=== PATIENT | male | born 1960 | race Caucasian/White ===

== ENCOUNTER → 2016-08-22 | Day surgery (SDC) | payer BC ==
[~2016-08-22] MED LIST: ANTIINFLAMMATORY; CALCIUM + D 6001 TA1 PO; COUMADIN PO; FISH OIL 1,0001 CAP PO; FISH OIL 1,0001 EAC1 PO; IRON TABLETS1 TAB PO; KLONOPIN1 MG PO; LISINOPRIL10 MG PO; LORTAB 5/500 TA1 TA1 PO; MOBIC15 MG PO; MULTI-DAY1 TAB PO; PERCOCET 7.5/321 TAB PO; PERCOCET10 PO; PREDNISONE PO; SLEEPING PILL; ZOVIRAX800 MG PO
--- NOTE | ~2016-08-22 | OR ---
Unit #: [id number] #: [id number] Patient: LINDY NUÑEZ [id number] [address] [address] [id number] MR#: [id number] NAME: LINDY NUÑEZ. ROOM: Date of Procedure: 08/22/2016 Admission Date: 08/22/2016 Surgeon: Bret Denny M.D. : 1960 Attending Physician: Bret Denny M.D. Primary Care Physician: Festus Medley M.D. OPERATIVE REPORT PREOPERATIVE DIAGNOSES Radiculopathy, degenerative disk disease, spinal stenosis, spondylolisthesis and back pain. POSTOPERATIVE DIAGNOSES Radiculopathy, degenerative disk disease, spinal stenosis, spondylolisthesis and back pain. PROCEDURE PERFORMED Lumbar epidural steroid injection with intravenous sedation under fluoroscopic guidance for needle localization. HISTORY The patient is a 56-year-old male with significant left lower extremity pain much greater than back pain associated with spinal disease. He is a poor surgical candidate due to the extensive amount of abnormalities. Medications helped somewhat. He has failed with rehab. Plan is for trial of epidural steroids to address this radicular component of his pain. DESCRIPTION OF PROCEDURE The patient was placed in a seated position. Standard monitors were applied. Then, 2 mg of Versed were given for sedation and anxiolysis, which were adequate. Vital signs remained stable. Sterile prep and drape then of the lumbar area was performed. The skin then at the L4-L5 level was localized with 1% lidocaine. An 18-gauge Hustead needle was then advanced via loss of resistance technique with fluoroscopic guidance in toward the epidural space. After confirming proper positioning with fluoroscopy and radiographic contrast, 80 mg of Depo-Medrol and 4 mL of 0.125% bupivacaine were deposited. The patient tolerated the procedure otherwise well and was discharged to recovery room in stable condition. Dictated by... Sp Ayala/zane TD: 08/22/2016 10:08 JOB #: [id number] Unit #: [id number] #: [id number] Patient: LINDY NUÑEZ OPERATIVE REPORT Page 1 of 1 X Bret Denny MD X PROCEDURE OPERATIVE NOTE
== END | disposition home or self-care (01) ==
LOC: CCSC 07:51
DX: M51.17 Intervertebral disc disorders with radiculopathy, lumbosacral region (principal); M43.16 Spondylolisthesis, lumbar region; M48.07 Spinal stenosis, lumbosacral region
CPT/HCPCS: J1040; J2250